=== PATIENT | male | born 1970 | race Caucasian/White ===

== ENCOUNTER 2017-09-09 19:53 | Emergency (ER) | payer OTHER ==
[2017-09-09 20:03] VITALS: BP 104/64
--- NOTE | 2017-09-09 23:29 | ED ---
Upper Extremity Pain - HPI Summary HPI Summary: 47M presents with left shoulder pain s/p playing hockey. He took a hit to the boards and hit left shoulder and head. He was wearing helmet. He denies any LOC. He states skating to sit down and felt lightheaded and does not remember leaving the rink. He states that had numbness for 15 mins that resolved. able to lift arm forward but unable to adduct arm. He has mild headache now. He denies any visual changes. He has neck pain on side of left neck. He denies any dizziness or photophobia. - History of Current Complaint Chief Complaint: EDExtremityUpper Stated Complaint: LT SHOULDER INJURY Time Seen by Provider: 09/09/17 21:44 - Allergies/Home Medications Allergies/Adverse Reactions: Allergies Allergy/AdvReac Type Severity Reaction Status Date / Time No Known Allergies Allergy Verified 09/09/17 21:36 Home Medications: Home Medications Zolpidem TAB* [Ambien TAB*] 5 mg PO BEDTIME PRN 09/09/17 [History Confirmed ] PMH/Surg Hx/FS Hx/Imm Hx Endocrine/Hematology History: Denies: Hx Diabetes Cardiovascular History: Denies: Hx Hypertension, Hx Pacemaker/ICD History: Denies: Hx Renal Disease Sensory History: Denies: Hx Hearing Aid Psychiatric History: Denies: Hx Panic Disorder - Surgical History Surgery Procedure, Year, and Place: Lt HIP - LYPOMA - Immunization History Date of Tetanus Vaccine: 2016 Date of Influenza Vaccine: 2017 Infectious Disease History: No Infectious Disease History: Denies: Traveled Outside the [place] in Last 30 Days - Family History Known Family History: Positive: Hypertension - Social History Alcohol Use: Daily Alcohol Amount: one beer Substance Use Type: Reports: None Smoking Status (MU): Never Smoked Tobacco Review of Systems Negative: Fever Negative: Chest Pain Negative: Shortness Of Breath Positive: Myalgia - left shoulder pain Positive: Headache All Other Systems Reviewed And Are Negative: Yes Physical Exam Triage Information Reviewed: Yes Vital Signs On Initial Exam: Initial Vitals Temp Pulse Resp BP Pulse Ox 98 F 58 16 104/64 98 09/09/17 19:58 09/09/17 19:58 09/09/17 19:58 09/09/17 19:58 09/09/17 19:58 Vital Signs Reviewed: Yes Appearance: Positive: Well-Appearing Skin: Positive: Warm, Dry Head/Face: Positive: Normal Head/Face Inspection Eyes: Positive: Normal, EOMI, FADUMO, Conjunctiva Clear ENT: Positive: Normal ENT inspection, Pharynx normal, TMs normal Neck: Positive: Other: - no midline tenderness neck Respiratory/Lung Sounds: Positive: Clear to Auscultation, Breath Sounds Present Cardiovascular: Positive: Normal, RRR Musculoskeletal: Positive: Limited @ - left shoulder, unable to abduct, Other - 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 - Radiology shoulder Xray Interpretation: Positive (See Comments) - ac separation Radiology Interpretation Completed By: ED Physician - CT head CT Interpretation: No Acute Changes CT Interpretation Completed By: Radiologist Course/Dx - Course Course Of Treatment: 47M presents with left shoulder pain s/p playing hockey. He took a hit to the boards and hit left shoulder and head. He was wearing helmet. He denies any LOC. He states skating to sit down and felt lightheaded and does not remember leaving the rink. He states that had numbness for 15 mins that resolved. able to lift arm forward but unable to adduct arm. He has mild headache now. He denies any visual changes. He has neck pain on side of left neck. He denies any dizziness or photophobia. on exam neurovascular intact. tender over AC joint. normal neuro exam. with amnesia will get CT which was normal. I read xray as AC joint separation. will give sling and have follow up with ortho. patient understand and agrees with plan. - Diagnoses Differential Diagnosis/HQI/PQRI: Positive: Fracture (Closed), Strain, Sprain Provider Diagnoses: Injury of left shoulder, Head injury Discharge - Discharge Plan Condition: Good Disposition: HOME Patient Education Materials: Acromioclavicular Separation (ED), Head Injury (ED ) Referrals: [facility] [Provider Group] Rian Cronin MD [Primary Care Provider] - Additional Instructions: I am reading xray as ac separation Keep shoulder in sling Take Tylenol or ibuprofen for pain Ice Follow up with ortho Return to ED if develop any new or worsening symptoms
[2017-09-09] MEDS ORDERED: Ketorolac INJ* 60 MG/2 ML VIAL IM ONE (23:33)
--- NOTE | 2017-09-10 07:34 | RAD ---
HISTORY: Left shoulder injury COMPARISONS: None VIEWS: 4, Frontal internal rotation, external rotation, outlet, and axillary views of the left shoulder FINDINGS: BONE DENSITY: Normal. BONES: There is no displaced fracture. JOINTS: There is osteoarthritis of the left AC joint ALIGNMENT: There is no dislocation. SOFT TISSUES: Unremarkable. OTHER FINDINGS: None. IMPRESSION: NO ACUTE OSSEOUS INJURY. IF SYMPTOMS PERSIST, RECOMMEND REPEAT IMAGING.
--- NOTE | 2017-09-10 07:40 | RAD ---
INDICATION: Head trauma playing hockey COMPARISON: CT of the brain September 06, 2017 TECHNIQUE: Contiguous axial sections of the brain were obtained from the skull base to the vertex without contrast. FINDINGS: The ventricles, cisterns and sulci are within normal limits. The forrest-white matter differentiation is adequately maintained and there is no sulcal effacement. No significant focal abnormality or mass effect is present. There is no evidence for intracranial hemorrhage. No significant focal osseous abnormality is present. The visualized portion of the paranasal sinuses and mastoid air cells appear clear. IMPRESSION: Normal CT of the brain.
== END 2017-09-09 23:51 | disposition home or self-care (01) ==
LOC: ED 19:53
DX: S49.92XA Unspecified injury of left shoulder and upper arm, initial encounter (principal); T14.90XA Injury, unspecified, initial encounter; X58.XXXA Exposure to other specified factors, initial encounter; Y93.22 Activity, ice hockey; Y92.9 Unspecified place or not applicable
CPT/HCPCS: 70450; 96372; 96374; 99282

== ENCOUNTER → 2018-03-08 10:50 | Day surgery (SDC) | payer OTHER ==
[~2018-03-08 10:50] MED LIST: Acetaminophen TAB* 325 MG PO PRN; Buffered Lidocaine 0.9% SYRIN* 5 ML/SYR SYRINGE INTRADERM ONE; Buffered Lidocaine 0.9% SYRIN* 5 ML/SYR SYRINGE ONE; Dexamethasone IV* 4 MG/ML 1 ML (4 MG) ONE; EPINEPHRINE 1 MG/ML 1 ML VIAL ONE; Famotidine IV* 10 MG/ML 2 ML (20 mg) IV ONE; Famotidine IV* 10 MG/ML 2 ML (20 mg) ONE; HYDROmorphone INJ* 1 MG/ML CARPUJECT SYRINGE IV PRN; Ketorolac INJ* 30 MG/ML 1 ML VIAL ONE; Lidocaine 1%* 5 ML VIAL ONE; Lidocaine 2% PF * 5 ML VIAL ONE; Midazolam* 1 MG/ML 5 ML VIAL (5 MG) ONE; Naloxone* 0.4 MG/ML 1 ML VIAL IV PRN; Ondansetron INJ* 2 MG/ML VIAL IV PRN; Propofol* 10 MG/ML 20 ML BTL IV PUSH ONE; ROPIVACAINE 5 MG/ML 30 ML BTL (0.5%) ONE; ceFAZolin 2 GM PREMIX (*) 2 GM/50 ML BAG IVPB ONE; fentaNYL* 50 MCG/ML 2 ML VIAL (100 MCG VIAL) ONE; oxyCODONE TAB* 5 MG TAB PO PRN
--- NOTE | 2018-03-08 12:23 | HP ---
DATE OF ADMISSION: 03/08/2018. ATTENDING PHYSICIAN: Dr. Toi Bales * (dictated by MARIBELL Donahue). CHIEF COMPLAINT: Left shoulder surgery. HISTORY OF PRESENT ILLNESS: Mr. Crump is a 47-year-old male who is right hand dominant who sustained an injury to his left shoulder about six months ago. He was injured while playing hockey and seen in the emergency room. He continued to play hockey and every time the pain got worse. He underwent a cortisone injection which helped temporarily. He also failed a course of physical therapy. He continues to have pain at this time and is interested in surgical intervention for correction of the problem. PAST MEDICAL HISTORY: Migraines, anemia, mild obstructive sleep apnea, not on CPAP. PAST SURGICAL HISTORY: Lipoma excision under local anesthesia. He has not had any general anesthesia previously. MEDICATIONS: 1. Riboflavin 100 mg four tabs daily. 2. Flonase nasal spray each nostril daily. 3. Sumatriptan Succinate 100 mg by mouth every 2 hours as needed for migraines. 4. Ambien 5 mg at night as needed. 5. Ibuprofen 200 mg as needed. ALLERGIES: No known drug allergies. 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 He denies alcoholic beverages, tobacco, or illicit drug use. He does exercise regularly. REVIEW OF SYSTEMS: Constitutional: Negative for recent hospitalizations, fevers, chills, night sweats, or unexplained weight loss. Head: Negative for headaches, lightheadedness, or balance problems. Cardiovascular: Negative for chest or arm pain with exertion, history of heart attack, heart murmur, heart palpitations, high blood pressure, embolism, or deep vein thrombosis. Respiratory: Negative for chronic cough, shortness of breath with exertion, asthma, or COPD. Gastrointestinal: Negative for heartburn, nausea, vomiting, diarrhea, constipation, or GERD. Genitourinary: Negative for nighttime urination, frequency of urination, urinary tract infections, or kidney problems. Musculoskeletal: Negative for chronic back or recent fractures. Skin : Negative for rashes, lesions, lumps, or sores. Neurologic: Negative for seizure, stroke, epilepsy, depression, or anxiety. Endocrine: Negative for diabetes or thyroid problems. Hematology: Negative for easy bleeding, bruising , or anemia. PHYSICAL EXAMINATION GENERAL: He is a well-developed, well-nourished male in no acute distress at rest. He is alert and oriented times three with appropriate mood and affect. GAIT: He ambulates with a nonantalgic gait. VITAL SIGNS: The patient is 6 feet tall, 145 pounds. Blood pressure 100/62, pulse 52, respirations 16. HEENT: Normocephalic, atraumatic. Hearing and vision are grossly intact. NECK: His trachea is midline. CARDIOVASCULAR: Regular rate and rhythm. No murmurs, rubs, or gallops. Normal S1, S2. RESPIRATORY: Lungs clear to auscultation bilaterally. No wheezes, rales, or rhonchi. ABDOMEN: Soft, nondistended, nontender, normal bowel sounds. EXTREMITIES: Exam of the left upper extremity: There is no soft tissue swelling or bruising. His skin is intact. He has passive range of motion to 180 degrees of forward flexion, 90 degrees of external rotation, and 90 degrees of internal rotation. He has a negative Neer's test, positive De León, and there is no pain or weakness with rotator cuff stress testing. Positive AC joint tenderness to palpation and this does reproduce his pain. No biceps tenderness to palpation. He has pain superior with Speed's and Waldorf's. Positive pain at the AC joint with cross body adduction testing. Neurovascularly intact. 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 PLAN: Patient is to undergo left shoulder arthroscopic subacromial decompression and distal clavicle resection by Dr. Bales. The risks, benefits , and postoperative course were discussed with the patient and he would like to proceed. All his questions were answered to his full satisfaction. He is understanding to call with any problems. Will follow-up with the patient postoperatively. MARIBELL DONAHUE [id number]/[facility] #: [id number] [place]
[2018-03-08 18:04] VITALS: BP 123/76
--- NOTE | 2018-03-11 02:28 | OP ---
DATE OF OPERATION: 03/08/18 - [facility] DATE OF : 66 SURGEON: Toi Bales MD POULTRY HELPER: MARIBELL Lester. A physician speech language pathology assistant was required for the length of the procedure for assistance with positioning, instrumentation, and closure. ANESTHESIOLOGIST: Hailey Mccall MD ANESTHESIA: General anesthesia, regional interscalene nerve block anesthesia. PRE-OP DIAGNOSES: 1. Left shoulder acromioclavicular joint osteoarthritis, recent acromioclavicular joint sprain, lateral clavicle fracture, intraarticular. 2. Left shoulder subacromial impingement. POST-OP DIAGNOSES: 1. Left shoulder acromioclavicular joint osteoarthritis, recent acromioclavicular joint sprain, lateral clavicle fracture, intraarticular. 2. Left shoulder subacromial impingement. OPERATIVE PROCEDURES: 1. Left shoulder arthroscopic distal clavicle resection. 2. Left shoulder arthroscopic subacromial decompression. ANTIBIOTICS: Ancef 2 g IV. IV FLUIDS: 800 cc Lactated Ringer's IV. [id number] TIME: Approximately 60 minutes. The timer was not stopped at the exact end of the skin closure, so this is an approximation. ARTHROSCOPY FLUID UTILIZED: Also not recorded during this case. COMPLICATIONS: None. ESTIMATED BLOOD LOSS: Minimal. SPECIMEN: None. IMPLANTS: None. 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 I treated it for a long time as left shoulder AC joint arthritis and AC joint sprain. Eventually, I got the MRI , which confirmed those diagnoses, but also showed a small fracture fragment about the distal end to the clavicle, with pseudarthrosis and nonunion. The patient responded insufficiently to nonoperative management and opted for surgery. See my history and physical for full details. DESCRIPTION OF PROCEDURE: Obtained written consent in preoperative holding. Operative extremity was marked in preoperative holding. The patient underwent an interscalene block, regional nerve block by Dr. Mccall. The patient was taken back to the operating room, placed supine on the operating room table. The patient was sedated and intubated. The patient was transferred to the lateral decubitus position with the left shoulder up. All bony prominences were padded. Axillary roll placed. Bone bag hardened. Left shoulder was placed in the appropriate longitudinal traction with 10 pounds. Appropriate forward flexion and abduction. The left shoulder was prepped and draped. Surgical time- out was performed. I entered the glenohumeral joint from posterior with a spinal needle and infused 30 cc of normal saline. I then established a posterior glenohumeral joint portal using standard technique. I commenced a diagnostic arthroscopy. The patient had no articular cartilage lesions in the glenohumeral joint. The patient had no labral tears visible. The patient had no pathology of the biceps or superior labrum. The patient had a normal physiologic barrier and no rotator cuff tendon tear. I established an anterior glenohumeral joint portal and used it to debride as some small area of frayed tissue about the rotator cuff interval. I removed fluid and instruments from the glenohumeral joint. I then entered the subacromial space from anterior and posterior. I encountered some bursitic tissue there. I established a lateral subacromial portal under direct visualization. I used an arthroscopic shaver to debride bursitic tissue superior to the rotator cuff throughout the subacromial space. There was a curve or hook to the anterior aspect of the acromion that I noted. I debrided the undersurface with a vapor and then used a mirta to remove the hook from the anterior aspect of the undersurface of the acromion. I next proceeded to the AC joint. The patient had much bursitic tissue about the AC joint. I debrided this with the vapor electrocautery. I then visualized the AC joint. It was greatly narrowed. I debrided at least 8 mm of the distal end to the distal clavicle with an arthroscopic mirta. Given the importance of this aspect of the case, I visualized both from the posterior portal as well as from the anterior portal. I lightly debrided the acromial aspect of the joint with the mirta, but did most of my debridement of the distal clavicle. I was quite aggressive in my debridement of the distal clavicle. I debrided several calcifications towards the superior aspect of the joint along the clavicle. I was able to palpate earlier in the case where that bony fragment piece on the MRI was located. With the swelling of the shoulder, I could not be 100% sure by palpation that the large fragment was entirely removed. Knowing the important ligaments at the superior and posterior aspect of the acromioclavicular joint, I did not want to be over aggressive in debriding these ligaments. So after a certain point, having opened up the joint space considerably, I decided that, that was sufficient and that if a small bony fragment was still present or any part of that is still present, that could be removed with a much quicker, open procedure, in the future. I considered obtaining a C-arm imaging during this stage, but I thought it would be best in the future. Instruments and fluid were removed from the subacromial space. Skin incisions were closed with [id number] stitches using nylon 4-0 suture. Xeroform, 4x4s, ABDs, foam tape. The patient was given a sling and a cooling unit for the left shoulder. The patient was awakened and extubated. DISPOSITION: The patient was discharged home with Percocet as needed for pain control and aspirin b.i.d. x2 weeks postoperatively for DVT prophylaxis. He was to start physical therapy immediately, the week following surgery for range of motion and strengthening. The patient will see me 10 to 14 days postoperatively. I provided a sheet with wound care instructions for the patient and also spoke to the patient's . [id number]/[facility] #: [id number] [place]
== END | disposition home or self-care (01) ==
LOC: OR 10:50
PROVIDERS: ATTEND Orthopaedic Surgery
DX: M19.012 Primary osteoarthritis, left shoulder (principal); M75.42 Impingement syndrome of left shoulder; G89.18 Other acute postprocedural pain; J30.2 Other seasonal allergic rhinitis; K58.9 Irritable bowel syndrome, unspecified; D64.9 Anemia, unspecified; G43.909 Migraine, unspecified, not intractable, without status migrainosus; G47.33 Obstructive sleep apnea (adult) (pediatric); M25.512 Pain in left shoulder
CPT/HCPCS: J0690; J1100; J1885; J2250; J2704; J2795; J3010

== ENCOUNTER 2018-08-03 16:41 | Emergency (ER) | payer OTHER ==
[2018-08-03 16:50] VITALS: BP 110/68
--- NOTE | 2018-08-03 17:03 | UC ---
Throat Pain/Nasal Des HPI - HPI Summary HPI Summary: 47-year-old male comes in today with a chief complaint of sore throat and rhinorrhea. Sore throats been in the last 1-2 days. Swallowing makes it worse. Not swallowing makes it better. Patient's had 2 weeks of rhinorrhea. He's been treating it as environmental allergies. Lately the rhinorrhea has turned to yellow color. Denies any sinus pressure. No chest congestion no fevers. - History of Current Complaint Chief Complaint: UCGeneralIllness Stated Complaint: SORE THROAT Time Seen by Provider: 08/03/18 16:52 Pain Intensity: 5 - Allergies/Home Medications Allergies/Adverse Reactions: Allergies Allergy/AdvReac Type Severity Reaction Status Date / Time No Known Allergies Allergy Verified 08/03/18 16:45 Home Medications: Home Medications SUMAtriptan TAB* [Imitrex TAB*] 1 tab PO DAILY 08/03/18 [History Confirmed 08/03] PMH/Surg Hx/FS Hx/Imm Hx Previously Healthy: Yes - Surgical History Surgical History: Yes Surgery Procedure, Year, and Place: 2008 LEFT HIP LIPOMA EXCISION, [facility] [place]. WISDOM TEETH EXTRACTION IN OFFICE AGE 19. 02/2018 Left AC Joint surgery - Family History Known Family History: Positive: Hypertension Negative: Diabetes - Social History Alcohol Use: Daily Alcohol Amount: one beer Substance Use Type: None Smoking Status (MU): Never Smoked Tobacco Review of Systems All Other Systems Reviewed And Are Negative: Yes Constitutional: Positive: Negative Skin: Positive: Negative Eyes: Positive: Negative ENT: Positive: Sore Throat, Nasal Discharge, Sinus Congestion Respiratory: Positive: Negative Cardiovascular: Positive: Negative Gastrointestinal: Positive: Negative Motor: Positive: Negative Neurovascular: Positive: Negative Musculoskeletal: Positive: Negative Neurological: Positive: Negative Psychological: Positive: Negative Is Patient Immunocompromised?: No Physical Exam Triage Information Reviewed: Yes Appearance: Well-Appearing, No Pain Distress, Well-Nourished Vital Signs: Initial Vital Signs Temp 97.8 F 08/03/18 16:46 Pulse 52 08/03/18 16:46 Resp 18 08/03/18 16:46 BP 110/68 08/03/18 16:46 Pulse Ox 99 08/03/18 16:46 Vital Signs Reviewed: Yes Eye Exam: Normal Eyes: Positive: Conjunctiva Clear ENT: Positive: Pharyngeal erythema, Nasal congestion, Nasal drainage, TMs normal Neck exam: Normal Neck: Positive: Supple Respiratory Exam: Normal Respiratory: Positive: Lungs clear, Normal breath sounds, No respiratory distress Cardiovascular Exam: Normal Cardiovascular: Positive: RRR Musculoskeletal Exam: Normal Musculoskeletal: Positive: Strength Intact, ROM Intact Neurological Exam: Normal Neurological: Positive: Alert, Muscle Tone Normal Psychological Exam: Normal Psychological: Positive: Age Appropriate Behavior Skin Exam: Normal Throat Pain/Nasal Course/Dx - Course Course Of Treatment: A rapid strep was negative. This was discussed with the patient. We discussed viral versus bacterial infections and the role of antibiotics. At this time the patient prefers to not be on an antibiotic. He will continue symptomatic treatment and get a reevaluation if not improving or worse. - Differential Dx/Diagnosis Provider Diagnoses: PHARYNGITIS Discharge - Sign-Out/Discharge Documenting (check all that apply): Patient Departure All imaging exams completed and their final reports reviewed: No Studies - Discharge Plan Condition: Stable Disposition: HOME Patient Education Materials: Pharyngitis (ED) Referrals: Rian Cronin MD [Primary Care Provider] - Additional Instructions: FOLLOW UP WITH YOUR DOCTOR IF NOT COMPLETELY IMPROVED. GET RECHECKED FOR ANY WORSENING OF YOUR CONDITION OR QUESTIONS OR CONCERNS. - Billing Disposition and Condition Condition: STABLE Disposition: Home
== END 2018-08-03 17:41 | disposition home or self-care (01) ==
LOC: UCEAST 16:41
DX: J02.9 Acute pharyngitis, unspecified (principal)
CPT/HCPCS: 87651; 99211; G0463